=== PATIENT | female | born 1985 | race American Indian/Alaskan Native ===

== ENCOUNTER 2016-12-31 07:33 | Emergency (ER) | payer MEDICAID ==
[2016-12-31 08:05] LABS: Basophils % (Auto) 0.8 % (0.0-1.8); Eosinophils % (Auto) 1.2 % (0.0-4.3); Hematocrit 41.7 % (30.3-42.9); Hemoglobin 13.7 gm/dl (10.1-14.3); Mean Corpuscular HGB Conc 33 % (30-34); Mean Corpuscular Hemoglobin 28 pg (28-32); Mean Corpuscular Volume 86 fl (79-97); Platelet Count 248 K/mm3 (140-440); Red Blood Count 4.86 M/mm3 (3.65-5.03); Red Cell Distribution Width 13.1 % (13.2-15.2)
[2016-12-31 08:10] LABS: Bilirubin,Urine NEG (Negative); Blood,Urine NEG (Negative); Ketones,Urine NEG (Negative); Leukocyte Esterase,Urine TR (Negative); Mucus,Urine FEW /HPF; Nitrite,Urine NEG (Negative); Protein,Urine <15 mg/dL mg/dL (Negative); Urobilinogen,Urine < 2.0 mg/dL (<2.0)
[2016-12-31 08:21] LABS: Alanine Aminotransferase 8 units/L (7-56); Albumin 4.1 g/dL (3.9-5); Albumin/Globulin Ratio 1.3 %; Alkaline Phosphatase 53 units/L (35-129); Anion Gap 18 mmol/L; BUN/Creatinine Ratio 20; Blood Urea Nitrogen 10 mg/dL (7-17); Carbon Dioxide 23 mmol/L (22-30); Chloride 100.2 mmol/L (98-107); Glucose 96 mg/dL (65-100); Lipase 33 units/L (13-60); Potassium 3.8 mmol/L (3.6-5.0); Sodium 137 mmol/L (137-145); Total Protein 7.3 g/dL (6.3-8.2)
[2016-12-31] MEDS ORDERED: TYLENOL PO ONE (09:19)
--- NOTE | 2016-12-31 10:01 | Emergency Department Report ---
HPI - General Chief Complaint: Abdominal Pain Time Seen by Provider: 12/31/16 09:11 - HPI HPI: This is a 31-year-old female presents to the emergency department from home with complaint of a three-day history of some lower abdominal cramping, nausea without vomiting and a headache. The headache is generalized but worse in the frontal region. Patient also states that she is as she had a last menstrual period of November 01, a positive home test, and then a positive urine test at the [facility]. She does not have an ATTENDANCE OFFICER. With this she is . She is not on any vitamins. She has not taken anything for her symptoms prior to presentation. No recent travel or sick contacts at home. She denies any vision change, slurred speech or any other neurological deficits. She denies any vaginal bleeding, vaginal discharge, dysuria, back pain, fever. ED Past Medical Hx - Past Medical History Previous Medical History?: No - Surgical History Past Surgical History?: No - Social History Smoking Status: Current Every Day Smoker Substance Use Type: None - Medications Home Medications: Home Medications Medication Instructions Recorded Confirmed Last Taken Type Vit Calc,Iron,Folic 1 each PO QDAY #30 tablet 12/31/16 Unknown Rx [ Vitamins] ED Review of Systems ROS: Stated complaint: HEADACHE, N/V Other details as noted in HPI Comment: All other systems reviewed and negative Constitutional: denies: chills, fever Eyes: denies: eye pain, eye discharge, vision change ENT: denies: ear pain, throat pain Respiratory: denies: cough, shortness of breath, wheezing Cardiovascular: denies: chest pain, palpitations Gastrointestinal: abdominal pain, nausea. denies: vomiting Genitourinary: denies: urgency, dysuria, discharge Musculoskeletal: denies: back pain, joint swelling, arthralgia Skin: denies: rash, lesions Neurological: headache. denies: numbness, paresthesias, confusion Physical Exam - Physical Exam Vital Signs: Vital Signs 12/31/16 07:38 Temperature 98.3 F Pulse Rate 95 H Respiratory 16 Rate Blood Pressure 147/92 O2 Sat by Pulse 100 Oximetry Physical Exam: GENERAL: The patient is well-developed well-nourished. HENT: Normocephalic. Atraumatic. Patient has moist mucous membranes. EYES: Extraocular motions are intact. Pupils equal reactive to light bilaterally. No nystagmus. NECK: Supple. Trachea is midline. CHEST/LUNGS: Clear to auscultation. There is no respiratory distress noted. HEART/CARDIOVASCULAR: Regular. There is no tachycardia. There is no gallop rub or murmur. ABDOMEN: Abdomen is soft, nontender. Unable to reproduce lower abdominal and pelvic cramping to palpation. Patient has normal bowel sounds. There is no abdominal distention. SKIN: Skin is warm and dry. NEURO: The patient is awake, alert, and oriented. The patient is cooperative. The patient has no focal neurologic deficits. The patient has normal speech. Cranial nerves II through XII grossly intact. MUSCULOSKELETAL: There is no tenderness or deformity. There is no limitation range of motion. There is no evidence of acute injury. ED Course Vital Signs 12/31/16 07:38 Temperature 98.3 F Pulse Rate 95 H Respiratory 16 Rate Blood Pressure 147/92 O2 Sat by Pulse 100 Oximetry ED Medical Decision Making - Lab Data Result diagrams: 12/31/16 07:45 12/31/16 07:45 - Radiology Data Radiology results: report reviewed Pelvic and transvaginal sonography: History: Abdominal pain. Findings: Uterus measures 1.6 x 8 x 7.1 cm. Multiple fibroids are noted within the uterus. Single intrauterine gestation is noted. CRL of the fetus is 12.5 mm corresponding to 7 weeks and 3 days gestation. heart rate 157 per minute. Right ovary 6 x 2.6 x 3.9 cm bases to the diaper with measures 2.6 cm. Left ovary 3.3 x 1.5 x 2 cm. No mass. Impression: Single viable intrauterine gestation. Transcribed By: PTP Dictated By: MARIO PEREZ MD Electronically Authenticated By: HUYEN James Medical Decision Making 31-year-old female presents the emergency department with some lower abdominal cramping and a headache while . She had not taken anything for her discomfort so she was given some Tylenol. On physical exam she does not have any focal, motor or sensory deficits in her cranial nerves are intact. Transvaginal/obstetrical ultrasound was done that showed a live intrauterine at 7 weeks and 3 days. Her labs are unremarkable. There is no thrombocytopenia, elevated liver function test, proteinuria. Blood pressure is normal. All this together appears very low suspicion for any type of preeclampsia or help syndrome. Upon reevaluation she is feeling better after the Tylenol and as the patient is , we will avoid a CT of the head. She was given multiple referrals for primary care and started on vitamins. She will return to the ER with any worsening of her symptoms or any acute distress. - Differential Diagnosis , threatened miscarriage, spontaneous miscarriage, preeclampsia, t Critical Care Time: No Critical care attestation.: If time is entered above; I have spent that time in minutes in the direct care of this critically ill patient, excluding procedure time. ED Disposition Clinical Impression: Qualifiers: Weeks of gestation: less than 8 weeks Qualified Code(s): Z3A.01 - Less than 8 weeks gestation of Headache Qualifiers: Headache type: unspecified Headache chronicity pattern: unspecified pattern Intractability: not intractable Qualified Code(s): R51 - Headache Disposition: DC- TO HOME OR SELFCARE Is pt being admited?: No Condition: Stable Instructions: (ED), Acute Headache (ED) Additional Instructions: Please follow up with an ATTENDANCE OFFICER in the next few days. He can take Tylenol every 4 hours, using weight-based dosing, as needed for discomfort. Return to the emergency Department with any worsening of your symptoms or any acute distress. I have started you on vitamins. Other than that, do not take any medications that are not prescribed by a physician. Prescriptions: Vit Calc,Iron,Folic [ Vitamins] 1 each PO QDAY #30 tablet Referrals: PRIMARY CAREM[facility] [Primary Care Provider] - 3-5 Days [facility] [Provider Group] - 3-5 Days [facility] [Provider Group] - 3-5 Days [facility] [Provider Group] - 3-5 Days Forms: Work/School Release Form(ED) Time of Disposition: 11:06
--- NOTE | 2016-12-31 10:11 | Ultrasound Report ---
Pelvic and transvaginal sonography: History: Abdominal pain. Findings: Uterus measures 1.6 x 8 x 7.1 cm. Multiple fibroids are noted within the uterus. Single intrauterine gestation is noted. CRL of the fetus is 12.5 mm corresponding to 7 weeks and 3 days gestation. heart rate 157 per minute. Right ovary 6 x 2.6 x 3.9 cm bases to the diaper with measures 2.6 cm. Left ovary 3.3 x 1.5 x 2 cm. No mass. Impression: Single viable intrauterine gestation.
[2016-12-31 11:28] VITALS: BP 117/71
== END 2016-12-31 11:16 | disposition home or self-care (01) ==
LOC: ED 07:33
DX: O26.891 Other specified pregnancy related conditions, first trimester (principal); R51 Headache; R10.30 Lower abdominal pain, unspecified; O99.331 Smoking (tobacco) complicating pregnancy, first trimester
CPT/HCPCS: 36415; 76801; 76817; 80053; 81001; 83690; 84703; 85025

== ENCOUNTER 2017-01-20 13:25 | Emergency (ER) | payer MEDICAID ==
[2017-01-20 15:06] LABS: Hematocrit 39.5 % (30.3-42.9); Hemoglobin 13.1 gm/dl (10.1-14.3); Mean Corpuscular HGB Conc 33 % (30-34); Mean Corpuscular Hemoglobin 28 pg (28-32); Mean Corpuscular Volume 85 fl (79-97); Platelet Count 237 K/mm3 (140-440); Red Blood Count 4.66 M/mm3 (3.65-5.03); Red Cell Distribution Width 12.8 % (13.2-15.2); White Blood Count 5.9 K/mm3 (4.5-11.0)
[2017-01-20 15:23] LABS: Alanine Aminotransferase 8 units/L (7-56); Albumin 3.8 g/dL (3.9-5); Albumin/Globulin Ratio 1.3 %; Alkaline Phosphatase 51 units/L (35-129); Anion Gap 18 mmol/L; BUN/Creatinine Ratio 15; Blood Urea Nitrogen 9 mg/dL (7-17); Calcium 8.7 mg/dL (8.4-10.2); Carbon Dioxide 22 mmol/L (22-30); Chloride 100.1 mmol/L (98-107); Glucose 102 mg/dL (65-100); Lipase 26 units/L (13-60); Potassium 3.6 mmol/L (3.6-5.0); Sodium 136 mmol/L (137-145); Total Protein 6.8 g/dL (6.3-8.2)
[2017-01-20 15:46] LABS: Basophils % (Manual) 0 % (0.0-1.8); Blastocytes % (Manual) 0 %
[2017-01-20 15:50] LABS: Anisocytosis 1+; Microcytosis Few
[2017-01-20 15:51] LABS: Diff Status Complete
--- NOTE | 2017-01-20 15:51 | Emergency Department Report ---
Chief Complaint: Upper Respiratory Infection Stated Complaint: FLU LIKE SYMPTOMS Time Seen by Provider: 01/20/17 15:47 - HPI History of Present Illness: Patient c/o C/C/C sxs for the last 2 days, denies fevers and sore throat Also states she thinks she's about 8-9 weeks , not receiving care yet, c/o intermittent lower abdominal cramping x 2 weeks and increased urinary frequency and white vaginal discharge; denies N/V/D, dysuria, hematuria and vaginal bleeding - ROS Review of Systems: Negative except for those stated in HPI - Exam Vital Signs: Vital Signs 01/20/17 14:38 Temperature 98.3 F Pulse Rate 83 Respiratory 18 Rate Blood Pressure 112/40 O2 Sat by Pulse 100 Oximetry Physical Exam: NAD RRR CTAB Abdomen - soft, nontender, nondistended MSE screening note: Focused history and physical exam performed. Due to findings the following was ordered: Bloodwork, urine, US pelvic Patient to be seen by provider in Main ED ED Medical Decision Making - Lab Data Result diagrams: 01/20/17 14:52 01/20/17 14:52 ED Disposition for MSE Condition: Stable
[2017-01-20 16:32] LABS: Bacteria,Urine 1+ /HPF (Negative); Bilirubin,Urine NEG (Negative); Blood,Urine SM (Negative); Ketones,Urine NEG (Negative); Leukocyte Esterase,Urine SM (Negative); Mucus,Urine 2+ /HPF; Nitrite,Urine NEG (Negative); Protein,Urine <15 mg/dL mg/dL (Negative); Urobilinogen,Urine < 2.0 mg/dL (<2.0)
--- NOTE | 2017-01-21 01:32 | Emergency Department Report ---
- General Chief Complaint: Upper Respiratory Infection Stated Complaint: FLU LIKE SYMPTOMS Time Seen by Provider: 01/20/17 15:47 Source: patient Mode of arrival: Ambulatory Limitations: No Limitations - History of Present Illness Initial Comments: Patient is 31 years old female presented to the ER today with chief complaint of generalized body ache, runny nose cough and congestion. Patient is 7 weeks . Patient denied any fever, nausea or vomiting. Patient told me that she is upset because she's has been waiting for a longer period. I apologized to her about the long waiting and we'll do our best to help today. MD Complaint: cough, rhinorrhea, nasal congestion -: Gradual Severity: moderate Associated Symptoms: rhinorrhea, nasal congestion, cough. denies: stiff neck, chest pain, shortness of breath, abdominal pain, nausea, vomiting, diarrhea, dysuria, rash, confusion, right sweats, weight loss, epistaxis, hoarseness, ear pain - Related Data Previous Rx's Medication Instructions Recorded Last Taken Type Vit Calc,Iron,Folic 1 each PO QDAY #30 tablet 12/31/16 Unknown Rx [ Vitamins] Allergies Allergy/AdvReac Type Severity Reaction Status Date / Time No Known Allergies Allergy Verified 12/31/16 07:43 ED Review of Systems ROS: Stated complaint: FLU LIKE SYMPTOMS Other details as noted in HPI Comment: All other systems reviewed and negative Constitutional: denies: chills, diaphoresis, fever ENT: congestion Respiratory: cough. denies: orthopnea, shortness of breath, SOB with exertion Cardiovascular: denies: chest pain, palpitations Gastrointestinal: denies: abdominal pain, nausea, vomiting Musculoskeletal: arthralgia, myalgia Neurological: denies: headache, weakness ED Past Medical Hx - Past Medical History Previous Medical History?: No - Surgical History Past Surgical History?: No - Social History Smoking Status: Never Smoker Substance Use Type: None - Medications Home Medications: Home Medications Medication Instructions Recorded Confirmed Last Taken Type Vit Calc,Iron,Folic 1 each PO QDAY #30 tablet 12/31/16 Unknown Rx [ Vitamins] ED Physical Exam - General Limitations: No Limitations General appearance: alert, in no apparent distress, other (patient was sleeping when I went into the room to examine her, easily arousable. No acute distress.) - Head Head exam: Present: normocephalic - Eye Eye exam: Present: normal appearance, PERRL - ENT ENT exam: Present: normal exam, normal orophraynx, mucous membranes moist, TM's normal bilaterally - Neck Neck exam: Present: normal inspection, full ROM. Absent: tenderness, meningismus, lymphadenopathy, thyromegaly - Respiratory Respiratory exam: Present: normal lung sounds bilaterally. Absent: respiratory distress, wheezes, rales, rhonchi, stridor, chest wall tenderness, accessory muscle use, decreased breath sounds, prolonged expiratory - Cardiovascular Cardiovascular Exam: Present: regular rate, normal rhythm, normal heart sounds - GI/Abdominal GI/Abdominal exam: Present: soft, normal bowel sounds. Absent: distended, tenderness, guarding, rebound, rigid, mass, bruit, pulsatile mass, hernia - Extremities Exam Extremities exam: Present: normal inspection, full ROM, normal capillary refill - Back Exam Back exam: Present: normal inspection. Absent: tenderness, CVA tenderness (R), CVA tenderness (L), muscle spasm, paraspinal tenderness - Neurological Exam Neurological exam: Present: alert, oriented X3, CN II-XII intact, normal gait - Skin Skin exam: Present: warm, intact, normal color. Absent: cyanosis ED Course Vital Signs 01/20/17 01/20/17 14:38 22:30 Temperature 98.3 F 98.1 F Pulse Rate 83 77 Respiratory 18 18 Rate Blood Pressure 112/40 124/75 O2 Sat by Pulse 100 100 Oximetry ED Medical Decision Making - Lab Data Result diagrams: 01/20/17 14:52 01/20/17 14:52 Critical care attestation.: If time is entered above; I have spent that time in minutes in the direct care of this critically ill patient, excluding procedure time. ED Disposition Clinical Impression: Viral syndrome, UTI in Disposition: DC-01 TO HOME OR SELFCARE Is pt being admited?: No Condition: Stable Instructions: Viral Syndrome (ED), Urinary Tract Infection in Women (ED) Referrals: PRIMARY CARE, [Primary Care Provider] - 3-5 Days
[2017-01-21] MEDS ORDERED: TYLENOL PO ONE (01:40)
[2017-01-21 01:50] VITALS: BP 125/84
== END 2017-01-21 01:51 | disposition home or self-care (01) ==
LOC: ED 13:25
DX: O98.511 Other viral diseases complicating pregnancy, first trimester (principal); B34.9 Viral infection, unspecified; O23.41 Unspecified infection of urinary tract in pregnancy, first trimester; Z3A.01 Less than 8 weeks gestation of pregnancy
CPT/HCPCS: 36415; 80053; 81001; 83690; 84702; 85007; 85025; 87400; 99283

== ENCOUNTER 2017-02-06 00:52 | Emergency (ER) | payer MEDICAID ==
[2017-02-06 01:15] VITALS: BP 113/78
[2017-02-06 01:51] LABS: Basophils % (Auto) 0.7 % (0.0-1.8); Eosinophils % (Auto) 2.5 % (0.0-4.3); Hemoglobin 13.7 gm/dl (10.1-14.3); Mean Corpuscular HGB Conc 33 % (30-34); Mean Corpuscular Hemoglobin 29 pg (28-32); Mean Corpuscular Volume 85 fl (79-97); Platelet Count 253 K/mm3 (140-440); Red Blood Count 4.81 M/mm3 (3.65-5.03); Red Cell Distribution Width 12.4 % (13.2-15.2); White Blood Count 6.7 K/mm3 (4.5-11.0)
[2017-02-06 02:06] LABS: Alanine Aminotransferase 10 units/L (7-56); Albumin/Globulin Ratio 1.3 %; Alkaline Phosphatase 52 units/L (35-129); Anion Gap 16 mmol/L; BUN/Creatinine Ratio 15; Blood Urea Nitrogen 9 mg/dL (7-17); Calcium 9.1 mg/dL (8.4-10.2); Carbon Dioxide 21 mmol/L (22-30); Chloride 104.3 mmol/L (98-107); Glucose 94 mg/dL (65-100); Lipase 31 units/L (13-60); Potassium 3.7 mmol/L (3.6-5.0); Sodium 138 mmol/L (137-145); Total Protein 7.2 g/dL (6.3-8.2)
--- NOTE | 2017-02-06 04:56 | Ultrasound Report ---
FINAL REPORT EXAM: US OB TRANSVAGINAL HISTORY: vag bleed COMPARISONS: None. FINDINGS: Transvaginal grayscale, color Doppler and M-mode first-trimester ultrasound Single intrauterine is present without visualized cardiac activity. [place]-rump length is approximately 17 millimeters with estimated gestational age of 8 weeks 1 day, which would correspond to estimated delivery date of 09/17/2017. A transmural right uterine body fibroid measures 4.6 x 3.9 x 3.5 cm. No significant free fluid in the pelvis. Right ovary measures 5 x 3.2 x 4.8 cm and contains 3 centimeter functional cyst. The left ovary measures 2.8 x 1.7 x 1.7 cm and is sonographically unremarkable. IMPRESSION: Single intrauterine without detected cardiac activity, which should be detectable based on size. demise/early failed is most likely. Dr. Miller discussed findings with Nurse Caden Britton at 0351 central Time on 02/06/2017 immediately following the examination.
--- NOTE | 2017-02-06 04:59 | Ultrasound Report ---
FINAL REPORT EXAM: US OB < = 14 WEEKS FETUS HISTORY: vag bleed COMPARISONS: None. FINDINGS: Transabdominal grayscale, color Doppler and M-mode first-trimester ultrasound Single intrauterine is present without visualized cardiac activity. [place]-rump length is approximately 17 millimeters with estimated gestational age of 8 weeks 1 day, which would correspond to estimated delivery date of 09/17/2017. A transmural right uterine body fibroid measures 4.6 x 3.9 x 3.5 cm. No significant free fluid in the pelvis. Right ovary measures 5 x 3.2 x 4.8 cm and contains a 3 centimeter functional cyst. The left ovary measures 2.8 x 1.7 x 1.7 cm and is sonographically unremarkable. IMPRESSION: Single intrauterine without detected cardiac activity, which should be detectable based on size. demise/early failed is most likely. Dr. Miller discussed findings with Nurse Caden Britton at 0351 central Time on 02/06/2017 immediately following the examination.
[2017-02-06 07:38] LABS: Bacteria,Urine 1+ /HPF (Negative)
[2017-02-06 07:43] LABS: Bilirubin,Urine Negative (Negative); Blood,Urine Large (Negative); Ketones,Urine Negative (Negative)
[2017-02-06 07:44] LABS: Leukocyte Esterase,Urine Moderate (Negative); Nitrite,Urine Negative (Negative); Protein,Urine <15 mg/dL mg/dL (Negative); Urobilinogen,Urine < 2.0 mg/dL (<2.0)
== END 2017-02-06 08:35 | disposition left against medical advice (07) ==
LOC: ED 00:52
DX: Z53.21 Procedure and treatment not carried out due to patient leaving prior to being seen by health care provider (principal)
CPT/HCPCS: 36415; 76801; 76817; 80053; 81001; 83690; 84702; 85025; 86850; 86900; 86901